=== PATIENT | male | born 1975 | race American Indian/Alaskan Native ===

== ENCOUNTER 2018-04-30 12:51 | Emergency (ER) | payer OTHER, MEDICARE ==
[2018-04-30 12:51] VITALS: BMI 101.7
[2018-04-30 14:01] VITALS: BP 155/79; PULSE 79; RESP 19; TEMP 98; O2SAT 99
--- NOTE | 2018-04-30 15:01 | ED PDOC ---
Arrival/HPI - General Chief Complaint: High Blood Pressure Historian: Patient - History of Present Illness Narrative History of Present Illness (Text): 04/30/18 15:00 A 43 year old male, whose past medical history includes hypertension, presents to the emergency department sent by podiatry clinic for elevated blood pressure from earlier today. Patient reports the clinic used a small blood pressure cuff on his forearm and his systolic was over 200. Patient stats he has not been taking any medication for his hypertension. Patient denies any fever, chills, shortness of breath, chest pain, diarrhea, nausea, vomiting, urinary symptoms, back pain, neck pain, headache, dizziness, or any other complaints. No PMD Time/Duration: 4-6 hours (earlier today) Symptom Onset: Gradual Symptom Course: Unchanged Activities at Onset: Light Context: Other (Podiatry Clinic) Past Medical History - Provider Review Nursing Documentation Reviewed: Yes - Infectious Disease Hx of Infectious Diseases: None - Cardiac Hx Congestive Heart Failure: Yes Hx Hypertension: Yes Hx Peripheral Edema: Yes - Pulmonary Hx Pneumonia: Yes (10 years ago) Hx Sleep Apnea: Yes - Neurological Hx Neurological Disorder: Yes Other/Comment: GEN MUSCLE WEAKNESS - HEENT Hx HEENT Disorder: Yes Hx Blind: Yes Hx Cataracts: Yes (bilat iol) - Renal Hx Renal Disorder: No - Endocrine/Metabolic Hx Diabetes Mellitus Type 2: Yes - Hematological/Oncological Hx Anemia: Yes - Integumentary Hx Dermatological Disorder: Yes Hx Cellulitis: Yes Other/Comment: DIABETIC FOOT ULCER;LEFT ANKLE ULCER;CELLULITIS - Musculoskeletal/Rheumatological Hx Fractures: Yes (fracture tibia fibula rodding) - Gastrointestinal Hx Gastrointestinal Disorders: Yes Hx Gastroesophageal Reflux: Yes - Genitourinary/Gynecological Hx Genitourinary Disorders: No - Psychiatric Hx Substance Use: No - Surgical History Hx Appendectomy: Yes - Anesthesia Hx Anesthesia: Yes Hx Anesthesia Reactions: No Hx Malignant Hyperthermia: No - Suicidal Assessment Feels Threatened In Home Enviroment: No Family/Social History - Physician Review Nursing Documentation Reviewed: Yes Family/Social History: No Known Family HX Smoking Status: Never Smoked Hx Alcohol Use: No Hx Substance Use: No Allergies/Home Meds Allergies/Adverse Reactions: Allergies cat dander Allergy (Intermediate, Verified 11/20/16 10:40) SWELLING Home Medications: Home Meds Medication Instructions Recorded Confirmed Multivitamin [One Daily] 1 tab PO DAILY 04/01/16 03/26/17 Acetaminophen [Pain Reliever] 650 mg PO DAILY 11/20/16 03/17/17 Fluticasone Propionate [Flonase] 1 spr NS DAILY 03/17/17 03/26/17 Oxymetazoline 0.05% [Afrin 0.05%] 1 ml NS DAILY PRN 03/17/17 03/17/17 Review of Systems - Physician Review All systems were reviewed & negative as marked: Yes - Review of Systems Constitutional: absent: Fevers, Night Sweats Respiratory: absent: SOB Cardiovascular: absent: Chest Pain Gastrointestinal: absent: Diarrhea, Nausea, Vomiting Genitourinary Male: absent: Urinary Output Changes Musculoskeletal: absent: Back Pain, Neck Pain Neurological: absent: Headache Physical Exam Vital Signs Reviewed: Yes Vital Signs Temp Pulse Resp BP BP Pulse Ox 04/30/18 14:00 98 F 79 19 155/79 H 99 04/30/18 13:00 163/89 H 04/30/18 12:52 98.2 F 87 18 163/89 H 98 Temperature: Afebrile Blood Pressure: Hypertensive Pulse: Regular Respiratory Rate: Normal Appearance: Positive for: Other (morbidly obese) - Systems Exam Head: Present: Atraumatic, Normocephalic Pupils: Present: PERRL Extroacular Muscles: Present: EOMI Conjunctiva: Present: Normal Respiratory/Chest: Present: Clear to Auscultation, Good Air Exchange. No: Respiratory Distress, Accessory Muscle Use Cardiovascular: Present: Regular Rate and Rhythm, Normal S1, S2. No: Murmurs Abdomen: No: Tenderness, Distention, Peritoneal Signs Back: Present: Normal Inspection Upper Extremity: Present: Normal Inspection. No: Cyanosis, Edema Lower Extremity: Present: Other (boot noted on right foot) Neurological: Present: GCS=15, CN II-XII Intact, Speech Normal Skin: Present: Warm, Dry, Normal Color. No: Rashes Psychiatric: Present: Alert, Oriented x 3, Normal Insight, Normal Concentration Medical Decision Making ED Course and Treatment: 04/30/18 14:30 Impression: 43 year old male presenting to the emergency room complaining of elevated blood pressure. Plan: -- Reassess and disposition Prior Visits: Notes and results from previous visits were reviewed. Progress Notes: - Scribe Statement The provider has reviewed the documentation as recorded by the Scribhieu Jackson All medical record entries made by the Scribhieu were at my direction and personally dictated by me. I have reviewed the chart and agree that the record accurately reflects my personal performance of the history, physical exam, medical decision making, and the department course for this patient. I have also personally directed, reviewed, and agree with the discharge instructions and disposition. Disposition/Present on Arrival - Present on Arrival Any Indicators Present on Arrival: No History of DVT/PE: No History of Uncontrolled Diabetes: No Urinary Catheter: Yes History of Decub. Ulcer: No History Surgical Site Infection Following: None - Disposition Have Diagnosis and Disposition been Completed?: Yes Diagnosis: Hypertension Disposition: HOME/ ROUTINE Disposition Time: 13:25 Condition: GOOD Discharge Instructions (ExitCare): High Blood Pressure (DC) Additional Instructions: MYLENE LEA, thank you for letting us take care of you today. The emergency medical care you received today was directed at your acute symptoms. If you were prescribed any medication, please fill it and take as directed. It may take several days for your symptoms to resolve. Return to the Emergency Department if your symptoms worsen, do not improve, or if you have any other problems. Please contact your doctor or call one of the physicians/clinics you have been referred to that are listed on the Patient Visit Information form that is included in your discharge packet. Bring any paperwork you were given at discharge with you along with any medications you are taking to your follow up visit. Our treatment cannot replace ongoing medical care by a primary care provider outside of the emergency department. Thank you for allowing the [facility] team to be part of your care today. Follow up with your primary care doctor next week as scheduled for a blood pressure check and further medication. Prescriptions: Enalapril Maleate [Vasotec] 5 mg PO DAILY #7 tab Referrals: [facility] Chana Req, [Non-Staff] - Follow up with primary Forms: [employer] ([place])
== END 2018-04-30 14:00 | disposition home or self-care (01) ==
LOC: ED 12:51
DX: I10 Essential (primary) hypertension (principal); I50.9 Heart failure, unspecified; E11.9 Type 2 diabetes mellitus without complications